=== PATIENT | male | born 1950 | race Caucasian/White ===

== ENCOUNTER → 2018-11-05 | Outpatient (CLI) | payer OTHER ==
--- NOTE | 2018-11-05 10:16 | PCVCIMAG ---
APPROVED REPORT Study performed: 11/05/2018 07:38:24 EXAM: Comprehensive 2D, Doppler, and color-flow Echocardiogram Patient Location: Echo lab Status: routine BSA: 2.06 HR: 60 bpmBP: 130/70 mmHg Rhythm: Atrial Fibrillation Other Information Study Quality: Adequate Risk Factors: Cardiac Risk Factors: HTN Indications Dyspnea Chest Pain 2D Dimensions IVSd: 11.33 (7-11mm) LVDd: 41.97 mm PWd: 11.46 (7-11mm) LVDs: 28.59 (25-40mm) Left Atrium: 36.12 (27-40mm) Aortic Root: 31.04 mm LV Single Plane 4CH: 59.16 % LV Single Plane 2CH: 68.37 % Biplane EF: 63.8 % Volumes Left Atrial Volume (Systole) Single Plane 4CH: 64.65 mLSingle Plane 2CH: 64.83 mL LA ESV Index: 31.00 mL/m2 Aortic Valve AoV Peak Jose Alfredo.: 1.75 m/s AO Peak Gr.: 12.25 mmHgLVOT Max P.03 mmHg LVOT Max V: 1.32 m/s Mitral Valve E/A Ratio: 1.8 MV Decel. Time: 280.63 ms MV E Max Jose Alfredo.: 0.80 m/s MV A Jose Alfredo.: 0.45 m/s IVRT: 83.04 ms Pulmonary Valve PV Peak Jose Alfredo.: 0.88 m/sPV Peak Gr.: 3.09 mmHg Pulmonary Vein P Vein S: 0.36 m/sP Vein A: 0.33 m/s P Vein D: 0.42 m/sP Vein A Dur.: 128.0 msec P Vein S/D Ratio: 0.86 Tricuspid Valve TR Peak Jose Alfredo.: 2.53 m/s TR Peak Gr.: 25.55 mmHg TV Vmax: 0.52 m/s Left Ventricle The left ventricle is normal size. There is normal LV segmental wall motion. There is normal left ventricular wall thickness. Left ventricular systolic function is normal. The left ventricular ejection fraction is within the normal range. LVEF is 60-65%. The left ventricular diastolic function is normal. Right Ventricle The right ventricle is normal size. The right ventricular systolic function is normal. Atria The left atrium size is normal. The right atrium size is normal. Aortic Valve The aortic valve is normal in structure. No aortic regurgitation is present. There is no aortic valvular stenosis. Mitral Valve The mitral valve is normal in structure. Trace mitral regurgitation. No evidence of mitral valve stenosis. Tricuspid Valve The tricuspid valve is normal in structure. Trace tricuspid regurgitation with PAP of 32 mmHg. Pulmonic Valve The pulmonary valve is normal in structure. There is no pulmonic valvular regurgitation. Great Vessels The aortic root is normal in size. IVC is normal in size and collapses >50% with inspiration. Pericardium There is no pericardial effusion. There is no pleural effusion. <Conclusion> The left ventricle is normal size. LVEF is 60-65%. The aortic valve is normal in structure. The mitral valve is normal in structure. Trace mitral regurgitation. The tricuspid valve is normal in structure. Trace tricuspid regurgitation with PAP of 32 mmHg. The pulmonary valve is normal in structure. There is no pericardial effusion.
--- NOTE | 2018-11-06 13:03 | PCVCIMAG ---
APPROVED REPORT Imaging Protocol: Rest Tc-99m/Stress Tc-99m 1 day Study performed: 11/05/2018 09:23:27 Indication: Chest pain, Dyspnea Patient Location: Out-Patient Stress Nurse: Cynthia Nelson RN, Camelia Littlejohn RN [place] Tech:Desiree Hartjodi [facility] Ht: 5 ft 11 in Wt: 190 lbs BSA: 2.06 m2 HR: 72 bpm BP: 155/71 mmHg BMI: 26.49 Rhythm: Normal Sinus Rhythm Medical History Medical History: Hyperlipidemia, HTN, Former Smoker, High Ca Score Medications: Amlodipine, ASA, Indocin, Losartan, Crestor Allergies: No known drug allergies Cardiac Risk Factors: Age Previous Cardiac Procedures: Coronary Calcium Score - 312 Pretest Chest Pain Characteristics: No chest pain Exercise History: Indeterminate Resting Data Rest SPECT myocardial perfusion imaging was performed in supine position 45 minutes following the intravenous injection of 9.9 mCi of Tc-99m Sestamibi. Time of rest injection: 0840 Date: 11/05/2018 Administration Route: IV Administration Site: Right Hand Exercise Stress At peak stress, the patient was injected intravenously with 34.9mCi of Tc-99m Sestamibi. Time of stress injection: 1000 Date: 11/05/2018 Administration Route: IV Administration Site: Right Hand Patient continued to exercise for 1 minute(s). Gated Stress SPECT was performed 30 minutes after stress injection. The images were gated to evaluate regional wall motion and calculate left ventricular ejection fraction. Stress Test Details Stress Test: Exercise stress testing was performed using a Isaiah protocol. HRMax Heart Rate (APMHR): 155 bpm Resting HR: 72 bpmTarget HR (85% APMHR): 131 bpm Max HR Achieved: 153 bpm % of APMHR: 98 Recovery HR: 90 bpm HR response to stress: Normal HR response to stress BP Resting BP: 155/71 mmHg Max BP: 186/80 mmHg Recovery BP: 173/67 mmHg BP response to stress: Abnormal hypertensive response to stress. ECG Resting ECG: Normal Sinus Rhythm Stress ECG: Sinus Tachycardia ST Change: Horizontal ST depression Maximum ST Deviation: 1 mm Arrhythmia: PVC's Recovery ECG: Sinus Rhythm Clinical Reason for Termination: Maximal effort Stress Symptoms: Dyspnea Exercise duration: 7 min 20 sec Exercise capacity: 10.10 METs Overall Exercise Capacity for Age: Average Scale: Active Angina Score: None Symptoms resolved during recovery. Stress ECG Conclusion 1. Subjectively negative for ischemia 2. Electrocardiographically suggestive but not diagnostic of ischemia with horizontal ST segment depression that did not peripheral criteria 3. Average functional capacity Stephens Treadmill Score is 2.0 which is Moderate risk. Study Data Post stress, the left ventricular ejection was 75%.. SSS: 0 SRS: 0 SDS: 0 TID = 0.69. Perfusion There is a large area of moderately reduced uptake in the entire segment of the inferolateral and apical wall which is seen on the stress images as well as the resting images. This area thickens and moves normally and is most consistent with attenuation artifact. Wall Motion Normal left ventricular wall motion. Nuclear Conclusion ECG Findings: equivocal Clinical Findings: negative for ischemia Nuclear Findings: negative for ischemia Exercise Capacity: average Left Ventricular Function: normal 1. Low risk study 2. Post exercise left ventricular ejection fraction of 75% without wall motion abnormalities <Conclusion> 1. Subjectively negative for ischemia 2. Electrocardiographically suggestive but not diagnostic of ischemia with horizontal ST segment depression that did not peripheral criteria 3. Average functional capacity
== END | disposition home or self-care (01) ==
LOC: PCVCIMAG 07:58
PROVIDERS: ATTEND Internal Medicine
DX: I10 Essential (primary) hypertension (principal); E78.5 Hyperlipidemia, unspecified; R93.1 Abnormal findings on diagnostic imaging of heart and coronary circulation; Z87.891 Personal history of nicotine dependence
CPT/HCPCS: 78452; 93017; 93306; A9500